=== PATIENT | male | born 1940 | race African-American/Black ===

== ENCOUNTER 2017-08-05 18:13 | Inpatient (IN) | payer MEDICARE ==
[~2017-08-05] VITALS: Ht 182.9 cm; Wt 77.1 kg
[2017-08-05] MEDS ORDERED: MORPHINE SULFATE 4 MG/ML CPJ (NOT FOR IM USE) IV STA (18:27)
[2017-08-05] MEDS ORDERED: SODIUM CHLORIDE 0.9% 1,000 ML IV ONE (18:27)
[2017-08-05] MEDS ORDERED: ONDANSETRON HCL 4MG/2ML INJ IV STA (18:27)
[2017-08-05 18:41] LABS: CLARITY URINE CLOUDY (CLEAR); COLOR URINE YELLOW (YELLOW); KETONES URINE 1+ (NEGATIVE); LEUKOCYTE ESTERASE URINE NEGATIVE (NEGATIVE); NITRITE URINE NEGATIVE (NEGATIVE); OCCULT BLOOD URINE TRACE (NEGATIVE); PROTEIN URINE 1+ (NEGATIVE); SPECIFIC GRAVITY URINE 1.023 (1.005-1.030)
[2017-08-05] MEDS ORDERED: DIATR MEGLU/DIATRIZOATE SOLN 120ML ONE (18:47)
[2017-08-05 19:33] LABS: BASOPHILS % 0.6 % (0.0-2.0); EOSINOPHILS % 1.1 % (0.0-5.0); HEMATOCRIT. 40.7 % (42.0-52.0); HEMOGLOBIN. 13.7 g/dL (14.0-18.0); LYMPHOCYTES % 14.1 % (20.0-50.0); MEAN CORPUSCULAR HEMOGLOBIN 30.8 pg (28.0-32.0); MEAN CORPUSCULAR VOLUME 91.1 fL (80.0-94.0); MEAN PLATELET VOLUME 8.5 fl (7.4-10.4); MONOCYTES % 6.1 % (2.0-8.0); NEUTROPHILS % 78.1 % (40.0-76.0); PLATELET 182 x1000/uL (130-400); RED BLOOD CELL COUNT 4.46 mill/uL (4.7-6.1); RED CELL DISTRIBUTION WIDTH 13.5 % (11.6-14.6)
[2017-08-05 19:38] LABS: CHLORIDE 108 mEq/L (98-107)
[2017-08-05 19:42] LABS: INR 1.1; PARTIAL THROMBOPLASTIN TIME 22.4 sec (23.4-31.0); PROTHROMBIN TIME 11.6 sec (9.4-11.6)
[2017-08-05] MEDS ORDERED: MORPHINE SULFATE 4 MG/ML CPJ (NOT FOR IM USE) IV ONE (19:45)
[2017-08-05 23:18] VITALS: BP 96/40
[2017-08-05 23:30] VITALS: BP 96/40
[2017-08-05] MEDS ORDERED: HYDROCODONE/ACETAMINOPHEN 5/325MG TABLET PO PRN (23:30)
[2017-08-05] MEDS ORDERED: IPRATROPIUM/ALBUTEROL 0.5-3(2.5)MG/3ML NEB INH PRN (23:30)
[2017-08-05] MEDS ORDERED: MAGNESIUM/ALUMINUM HYDROXIDE/SIMETHICONE 30ML UDC PO PRN (23:30)
[2017-08-05] MEDS ORDERED: CLONIDINE 0.1MG TABLET PO PRN (23:30)
[2017-08-05] MEDS ORDERED: DIPHENHYDRAMINE 50MG/ML VIAL IV PRN (23:30)
[2017-08-05] MEDS ORDERED: MORPHINE SULFATE 2 MG/ML CPJ (NOT FOR IM USE) IV PRN (23:30)
[2017-08-05] MEDS ORDERED: GUAIFENESIN 200MG/10ML SUGAR FREE UDC PO PRN (23:30)
[2017-08-05] MEDS ORDERED: ONDANSETRON HCL 4MG/2ML INJ IV PRN (23:30)
[2017-08-05] MEDS ORDERED: ACETAMINOPHEN 325MG TABLET PO PRN (23:30)
[2017-08-05] MEDS ORDERED: NA PHOS,M-B/NA PHOS,DI-BA ENEMA 118ML PR PRN (23:30)
[2017-08-06 00:33] LABS: CHLORIDE 110 mEq/L (98-107)
[2017-08-06 04:00] VITALS: BP 117/59
[2017-08-06] MEDS ORDERED: DEXT 5%/0.45% NACL 1000ML 1,000 ML IV SCH (04:00)
[2017-08-06] MEDS ORDERED: PROP80CA2 PO (04:36)
[2017-08-06] MEDS ORDERED: ASPI-1159 PO (04:36)
[2017-08-06] MEDS ORDERED: MULT-1146 PO ×2 (04:36→22:25)
[2017-08-06] MEDS ORDERED: FLUT100D IH (04:36)
[2017-08-06] MEDS ORDERED: OMEP40CA34 PO ×2 (04:36→22:25)
[2017-08-06] MEDS ORDERED: LISI-604 PO (04:36)
[2017-08-06] MEDS ORDERED: HYDR12.54 PO (04:36)
[2017-08-06] MEDS ORDERED: SUCR1TAB30 PO (04:36)
[2017-08-06] MEDS ORDERED: ROSU40TA PO (04:36)
[2017-08-06] MEDS ORDERED: DICY20TA11 PO (04:36)
[2017-08-06 06:27] LABS: CHLORIDE 108 mEq/L (98-107)
[2017-08-06 06:54] LABS: HDL CHOLESTEROL 42 mg/dL (40-59); LDL CHOLESTEROL 75 mg/dL (5-100)
[2017-08-06 06:59] LABS: BASOPHILS % 0.4 % (0.0-2.0); EOSINOPHILS % 0.3 % (0.0-5.0); HEMATOCRIT. 35.7 % (42.0-52.0); HEMOGLOBIN. 12.4 g/dL (14.0-18.0); LYMPHOCYTES % 19.7 % (20.0-50.0); MEAN CORPUSCULAR HEMOGLOBIN 31.7 pg (28.0-32.0); MEAN CORPUSCULAR VOLUME 91.2 fL (80.0-94.0); MEAN PLATELET VOLUME 9.1 fl (7.4-10.4); MONOCYTES % 7.7 % (2.0-8.0); NEUTROPHILS % 71.9 % (40.0-76.0); PLATELET 157 x1000/uL (130-400); RED BLOOD CELL COUNT 3.91 mill/uL (4.7-6.1); RED CELL DISTRIBUTION WIDTH 13.4 % (11.6-14.6)
[2017-08-06 08:00] VITALS: BP 116/74
[2017-08-06] MEDS: ENOXAPARIN 40MG/0.4ML SYR SUBCUT SCH (09:24)
[2017-08-06] MEDS ORDERED: BUPIVACAINE HCL 0.5% (5MG/ML) 50ML ONE (11:19)
[2017-08-06] MEDS ORDERED: SKIN ADHESIVE 0.7 GM EA TOP ONE (11:24)
[2017-08-06 12:00] VITALS: BP 132/71
[2017-08-06] MEDS ORDERED: DEXAMETHASONE 4MG/ML 1ML VIAL ONE (12:25)
[2017-08-06] MEDS ORDERED: PROPOFOL 200MG/20ML VIAL IV ONE ×2 (12:25→13:54)
[2017-08-06] MEDS ORDERED: ROCURONIUM BROMIDE 10MG/ML VIAL 5ML IV ONE (12:25)
[2017-08-06] MEDS ORDERED: EPHEDRINE SULFATE 50MG/ML VIAL ONE (12:54)
[2017-08-06] MEDS ORDERED: ONDANSETRON HCL 4MG/2ML INJ IV PRN (13:00)
[2017-08-06] MEDS: SODIUM CHLORIDE 0.9% INJ 3ML FLUSH IVF SCH (13:00)
[2017-08-06] MEDS ORDERED: HYDROMORPHONE HCL/PF 2MG/ML CPJ IV PRN (13:00)
[2017-08-06] MEDS ORDERED: MEPERIDINE HCL/PF 25MG/ML CPJ IV PRN (13:00)
[2017-08-06] MEDS ORDERED: LABETALOL 5MG/ML SYR 20 MG/4 ML SYRINGE IV PRN (13:00)
[2017-08-06] MEDS ORDERED: NEOSTIGMINE METHYLSULFATE 1MG/ML 10 ML VIAL ONE (13:13)
[2017-08-06] MEDS ORDERED: ESMOLOL HCL 10MG/ML 10ML VIAL IV ONE (13:22)
[2017-08-06] MEDS ORDERED: MORPHINE SULFATE 2 MG/ML CPJ (NOT FOR IM USE) IV PRN (13:30)
[2017-08-06] MEDS ORDERED: ACETAMINOPHEN 650MG SUPP PR PRN (13:30)
[2017-08-06] MEDS ORDERED: MORPHINE SULFATE 4 MG/ML CPJ (NOT FOR IM USE) IV PRN (13:30)
[2017-08-06] MEDS ORDERED: HYDROCODONE/ACETAMINOPHEN 5/325MG TABLET PO PRN (13:30)
[2017-08-06] MEDS ORDERED: HYDROMORPHONE HCL/PF 2MG/ML (OR) ONE (14:34)
[2017-08-06] MEDS ORDERED: ONDANSETRON HCL 4MG/2ML INJ ONE (14:34)
[2017-08-06] MEDS: DEXT 5%/0.45% NACL KCL 20MEQ/L 1,000 ML IV SCH (15:37)
[2017-08-06 16:00] VITALS: BP 146/67
[2017-08-06 20:00] VITALS: BP 127/66
[2017-08-06] MEDS ORDERED: MEDICATION NOT ON FORMULARY EA (Hydrochlorothiazide 12.5 MG) PO SCH (20:30)
[2017-08-07] VITALS: BP 139/57
[2017-08-07] MEDS ORDERED: DICYCLOMINE HCL 20MG TABLET PO PRN (02:00)
[2017-08-07] MEDS: DEXT 5%/0.45% NACL KCL 20MEQ/L 1,000 ML IV SCH ×3 (03:39→14:45)
[2017-08-07 04:00] VITALS: BP 130/63
[2017-08-07] MEDS: OMEPRAZOLE 20MG CAPSULE EXTENDED RELEASE PO SCH (06:49)
[2017-08-07 07:18] LABS: BASOPHILS % 0.1 % (0.0-2.0); HEMATOCRIT. 33.5 % (42.0-52.0); HEMOGLOBIN. 11.5 g/dL (14.0-18.0); LYMPHOCYTES % 11.9 % (20.0-50.0); MEAN CORPUSCULAR HEMOGLOBIN 31.2 pg (28.0-32.0); MEAN CORPUSCULAR VOLUME 90.7 fL (80.0-94.0); MEAN PLATELET VOLUME 8.8 fl (7.4-10.4); PLATELET 163 x1000/uL (130-400); RED CELL DISTRIBUTION WIDTH 13.3 % (11.6-14.6)
[2017-08-07 08:00] VITALS: BP 124/72
[2017-08-07 08:06] LABS: CHLORIDE 106 mEq/L (98-107)
[2017-08-07] MEDS ORDERED: MEDICATION NOT ON FORMULARY EA (Omeprazole 1 CAP) PO SCH (09:00)
[2017-08-07] MEDS ORDERED: PROPRANOLOL HCL 80 MG PO SCH (09:00)
[2017-08-07] MEDS ORDERED: MEDICATION NOT ON FORMULARY EA (Rosuvastatin Calcium (Crestor) 40 MG) PO SCH (09:00)
[2017-08-07] MEDS ORDERED: MEDICATION NOT ON FORMULARY EA (Multivitamin (Multi Vitamin Daily) 1 TAB) PO SCH (09:00)
[2017-08-07] MEDS: HYDROCHLOROTHIAZIDE 12.5MG CAPSULE PO SCH (09:00)
[2017-08-07] MEDS: ENOXAPARIN 40MG/0.4ML SYR SUBCUT SCH (09:50)
[2017-08-07] MEDS: ACETAMINOPHEN 325MG TABLET PO PRN ×3 (09:51→22:10)
[2017-08-07] MEDS: PROPRANOLOL HCL 20MG TABLET PO SCH ×2 (09:53→22:11)
[2017-08-07] MEDS: MULTIVITAMINS,THER W-MINERALS TABLET PO SCH (09:53)
[2017-08-07] MEDS: ASPIRIN 81MG EC TABLET PO SCH (09:53)
[2017-08-07] MEDS: LISINOPRIL 20MG TABLET PO SCH (09:54)
[2017-08-07] MEDS: SUCRALFATE 1G TABLET PO SCH ×2 (09:54→19:19)
[2017-08-07] MEDS: ONDANSETRON HCL 4MG/2ML INJ IV PRN (10:17)
[2017-08-07] MEDS: LEVOFLOXACIN 500MG PREMIX 100 ML IV SCH (14:45)
[2017-08-07] MEDS: CHLORPROMAZINE HCL 25 MG TABLET PO PRN (15:46)
[2017-08-07 16:00] VITALS: BP 103/58
[2017-08-07 20:00] VITALS: BP 120/66
[2017-08-07] MEDS: ATORVASTATIN CALCIUM 40MG TABLET PO SCH (22:11)
[2017-08-07] MEDS: SODIUM CHLORIDE 0.9% INJ 3ML FLUSH IVF SCH (22:12)
[2017-08-08] VITALS: BP 110/60
[2017-08-08] MEDS: HYDROCODONE/ACETAMINOPHEN 5/325MG TABLET PO PRN (03:01)
[2017-08-08] MEDS: CHLORPROMAZINE HCL 25 MG TABLET PO PRN ×2 (03:10→20:25)
[2017-08-08 04:00] VITALS: BP 96/56
[2017-08-08] MEDS: DEXT 5%/0.45% NACL KCL 20MEQ/L 1,000 ML IV SCH ×2 (05:55→17:17)
[2017-08-08] MEDS: OMEPRAZOLE 20MG CAPSULE EXTENDED RELEASE PO SCH (05:56)
[2017-08-08] MEDS: SODIUM CHLORIDE 0.9% INJ 3ML FLUSH IVF SCH ×3 (05:56→20:29)
[2017-08-08 06:34] LABS: BASOPHILS % 0.3 % (0.0-2.0); EOSINOPHILS % 1.3 % (0.0-5.0); HEMOGLOBIN. 9.5 g/dL (14.0-18.0); LYMPHOCYTES % 17.1 % (20.0-50.0); MEAN CORPUSCULAR HEMOGLOBIN 31.1 pg (28.0-32.0); MEAN CORPUSCULAR VOLUME 90.6 fL (80.0-94.0); MEAN PLATELET VOLUME 8.7 fl (7.4-10.4); MONOCYTES % 12.8 % (2.0-8.0); NEUTROPHILS % 68.5 % (40.0-76.0); PLATELET 125 x1000/uL (130-400); RED BLOOD CELL COUNT 3.04 mill/uL (4.7-6.1); RED CELL DISTRIBUTION WIDTH 13.2 % (11.6-14.6)
[2017-08-08 07:04] LABS: HEMATOCRIT. 28.6 % (42.0-52.0)
[2017-08-08 07:14] LABS: CHLORIDE 107 mEq/L (98-107)
[2017-08-08 08:00] VITALS: BP 108/55
[2017-08-08] MEDS: PROPRANOLOL HCL 20MG TABLET PO SCH ×2 (09:00→20:27)
[2017-08-08] MEDS: ENOXAPARIN 40MG/0.4ML SYR SUBCUT SCH (09:00)
[2017-08-08] MEDS: ASPIRIN 81MG EC TABLET PO SCH (09:00)
[2017-08-08] MEDS: HYDROCHLOROTHIAZIDE 12.5MG CAPSULE PO SCH (10:01)
[2017-08-08] MEDS: SUCRALFATE 1G TABLET PO SCH ×2 (10:01→17:18)
[2017-08-08] MEDS: LISINOPRIL 20MG TABLET PO SCH (10:02)
[2017-08-08] MEDS: MULTIVITAMINS,THER W-MINERALS TABLET PO SCH (10:02)
[2017-08-08 12:00] VITALS: BP 118/66
[2017-08-08] MEDS: LEVOFLOXACIN 500MG PREMIX 100 ML IV SCH (15:00)
[2017-08-08 16:00] VITALS: BP 102/65
[2017-08-08 20:00] VITALS: BP 126/68
[2017-08-08] MEDS: ATORVASTATIN CALCIUM 40MG TABLET PO SCH (20:26)
[2017-08-08] MEDS: ACETAMINOPHEN 325MG TABLET PO PRN (20:39)
[2017-08-09] VITALS: BP 107/58
[2017-08-09] MEDS: HYDROCODONE/ACETAMINOPHEN 5/325MG TABLET PO PRN (02:15)
[2017-08-09 04:00] VITALS: BP 110/62
[2017-08-09] MEDS: OMEPRAZOLE 20MG CAPSULE EXTENDED RELEASE PO SCH (06:44)
[2017-08-09] MEDS: DEXT 5%/0.45% NACL KCL 20MEQ/L 1,000 ML IV SCH ×2 (06:44→14:07)
[2017-08-09 08:00] VITALS: BP 126/67
[2017-08-09] MEDS: MULTIVITAMINS,THER W-MINERALS TABLET PO SCH (09:34)
[2017-08-09] MEDS: PROPRANOLOL HCL 20MG TABLET PO SCH ×2 (09:34→22:47)
[2017-08-09] MEDS: SUCRALFATE 1G TABLET PO SCH ×2 (09:34→17:12)
[2017-08-09] MEDS: HYDROCHLOROTHIAZIDE 12.5MG CAPSULE PO SCH (09:34)
[2017-08-09] MEDS: ASPIRIN 81MG EC TABLET PO SCH (09:34)
[2017-08-09] MEDS: LISINOPRIL 20MG TABLET PO SCH (09:35)
[2017-08-09] MEDS: ENOXAPARIN 40MG/0.4ML SYR SUBCUT SCH (09:35)
[2017-08-09 10:01] LABS: BASOPHILS % 0.4 % (0.0-2.0); EOSINOPHILS % 1.7 % (0.0-5.0); HEMATOCRIT. 28.9 % (42.0-52.0); HEMOGLOBIN. 9.8 g/dL (14.0-18.0); LYMPHOCYTES % 9.5 % (20.0-50.0); MEAN CORPUSCULAR VOLUME 91.8 fL (80.0-94.0); MEAN PLATELET VOLUME 8.5 fl (7.4-10.4); MONOCYTES % 10.9 % (2.0-8.0); NEUTROPHILS % 77.5 % (40.0-76.0); PLATELET 143 x1000/uL (130-400); RED BLOOD CELL COUNT 3.15 mill/uL (4.7-6.1); RED CELL DISTRIBUTION WIDTH 13.5 % (11.6-14.6)
[2017-08-09 10:42] LABS: CHLORIDE 107 mEq/L (98-107)
[2017-08-09 12:00] VITALS: BP 126/67
[2017-08-09] MEDS: SODIUM CHLORIDE 0.9% INJ 3ML FLUSH IVF SCH ×3 (14:07→22:48)
[2017-08-09] MEDS: CHLORPROMAZINE HCL 25 MG TABLET PO PRN ×2 (14:07→19:08)
[2017-08-09 15:55] LABS: CLARITY URINE CLEAR (CLEAR); COLOR URINE YELLOW (YELLOW); KETONES URINE NEGATIVE (NEGATIVE); LEUKOCYTE ESTERASE URINE NEGATIVE (NEGATIVE); NITRITE URINE NEGATIVE (NEGATIVE); OCCULT BLOOD URINE 2+ (NEGATIVE); PH URINE 6.5 (4.5-8.0); PROTEIN URINE NEGATIVE (NEGATIVE)
[2017-08-09 16:00] VITALS: BP 133/73
[2017-08-09] MEDS: ACETAMINOPHEN 325MG TABLET PO PRN (17:12)
[2017-08-09] MEDS ORDERED: DIATR MEGLU/DIATRIZOATE SOLN 30ML PO NR ×2 (18:30)
[2017-08-09 20:00] VITALS: BP 125/75
[2017-08-09] MEDS ORDERED: VANCOMYCIN 1500MG in DEXTROSE 5% WATER 250ML IV SCH (20:00)
[2017-08-09] MEDS: ATORVASTATIN CALCIUM 40MG TABLET PO SCH (22:48)
[2017-08-09] MEDS: METRONIDAZOLE 500 MG PREMIX 100 ML IV SCH (22:48)
[2017-08-09 23:18] LABS: HEMATOCRIT 26.9 % (42.0-52.0); HEMOGLOBIN 9.3 g/dL (14.0-18.0)
[2017-08-10] VITALS: BP 118/59
[2017-08-10] MEDS: ACETAMINOPHEN 325MG TABLET PO PRN (00:38)
[2017-08-10] MEDS: PIPERACILLIN/TAZ 3.375G PREMIX 50 ML IV SCH ×3 (03:48→17:35)
[2017-08-10 03:52] VITALS: BP 115/58
[2017-08-10] MEDS: METRONIDAZOLE 500 MG PREMIX 100 ML IV SCH ×3 (04:57→22:05)
[2017-08-10 07:07] LABS: INR 1.1; PROTHROMBIN TIME 11.4 sec (9.4-11.6)
[2017-08-10 07:16] LABS: BASOPHILS % 0.4 % (0.0-2.0); EOSINOPHILS % 3.8 % (0.0-5.0); HEMATOCRIT. 26.5 % (42.0-52.0); HEMOGLOBIN. 9.1 g/dL (14.0-18.0); LYMPHOCYTES % 18.4 % (20.0-50.0); MEAN CORPUSCULAR HEMOGLOBIN 31.2 pg (28.0-32.0); MEAN CORPUSCULAR VOLUME 90.9 fL (80.0-94.0); MEAN PLATELET VOLUME 8.4 fl (7.4-10.4); MONOCYTES % 12.4 % (2.0-8.0); PLATELET 165 x1000/uL (130-400); RED BLOOD CELL COUNT 2.92 mill/uL (4.7-6.1); RED CELL DISTRIBUTION WIDTH 13.3 % (11.6-14.6)
[2017-08-10 07:39] LABS: CHLORIDE 105 mEq/L (98-107)
[2017-08-10 07:51] VITALS: BP 124/61
[2017-08-10] MEDS: MULTIVITAMINS,THER W-MINERALS TABLET PO SCH (08:53)
[2017-08-10] MEDS: FAMOTIDINE 20MG TABLET PO SCH ×2 (08:53→17:35)
[2017-08-10] MEDS: SUCRALFATE 1G TABLET PO SCH ×2 (08:54→17:35)
[2017-08-10] MEDS: PROPRANOLOL HCL 20MG TABLET PO SCH ×2 (08:54→22:06)
[2017-08-10 12:06] VITALS: BP 172/61
[2017-08-10] MEDS ORDERED: VANCOMYCIN 1 G PREMIX 200 ML IV SCH (14:00)
[2017-08-10] MEDS: SODIUM CHLORIDE 0.9% INJ 3ML FLUSH IVF SCH ×2 (14:42→22:06)
[2017-08-10 16:32] VITALS: BP 139/68
[2017-08-10 20:27] VITALS: BP 126/67
[2017-08-10] MEDS: CHLORPROMAZINE HCL 25 MG TABLET PO PRN (22:06)
[2017-08-10] MEDS: ATORVASTATIN CALCIUM 40MG TABLET PO SCH (22:06)
[2017-08-11 00:22] VITALS: BP 147/81
[2017-08-11] MEDS: PIPERACILLIN/TAZ 3.375G PREMIX 50 ML IV SCH ×2 (01:48→08:49)
[2017-08-11] MEDS ORDERED: VANCOMYCIN 1 G PREMIX 200 ML IV SCH (02:00)
[2017-08-11 04:00] VITALS: BP 143/62
[2017-08-11] MEDS: METRONIDAZOLE 500 MG PREMIX 100 ML IV SCH ×2 (04:19→11:47)
[2017-08-11] MEDS: SODIUM CHLORIDE 0.9% INJ 3ML FLUSH IVF SCH ×3 (05:09→21:42)
[2017-08-11 06:12] LABS: BASOPHILS % 0.4 % (0.0-2.0); EOSINOPHILS % 4.1 % (0.0-5.0); HEMATOCRIT. 26.9 % (42.0-52.0); HEMOGLOBIN. 9.3 g/dL (14.0-18.0); LYMPHOCYTES % 19.8 % (20.0-50.0); MEAN CORPUSCULAR HEMOGLOBIN 31.4 pg (28.0-32.0); MEAN CORPUSCULAR VOLUME 91.1 fL (80.0-94.0); MEAN PLATELET VOLUME 8.1 fl (7.4-10.4); MONOCYTES % 14.2 % (2.0-8.0); NEUTROPHILS % 61.5 % (40.0-76.0); PLATELET 178 x1000/uL (130-400); RED BLOOD CELL COUNT 2.95 mill/uL (4.7-6.1); RED CELL DISTRIBUTION WIDTH 13.2 % (11.6-14.6)
[2017-08-11 06:33] LABS: CHLORIDE 104 mEq/L (98-107)
[2017-08-11] MEDS: ONDANSETRON HCL 4MG/2ML INJ IV PRN (07:43)
[2017-08-11 08:00] VITALS: BP 130/72
[2017-08-11] MEDS: MULTIVITAMINS,THER W-MINERALS TABLET PO SCH (08:50)
[2017-08-11] MEDS: FAMOTIDINE 20MG TABLET PO SCH ×2 (08:50→16:35)
[2017-08-11] MEDS: PROPRANOLOL HCL 20MG TABLET PO SCH ×2 (08:50→21:00)
[2017-08-11] MEDS: SUCRALFATE 1G TABLET PO SCH ×2 (08:50→16:35)
[2017-08-11 12:00] VITALS: BP 142/70
[2017-08-11] MEDS ORDERED: VANCOMYCIN 1250MG in DEXTROSE 5% WATER 250ML IV SCH (14:00)
[2017-08-11 16:00] VITALS: BP 137/77
[2017-08-11] MEDS: CHLORPROMAZINE HCL 25 MG TABLET PO PRN (16:14)
[2017-08-11] MEDS: ACETAMINOPHEN 325MG TABLET PO PRN (16:35)
[2017-08-11 20:17] VITALS: BP 116/63
[2017-08-11] MEDS: ATORVASTATIN CALCIUM 40MG TABLET PO SCH (21:42)
[2017-08-12 00:34] VITALS: BP 126/65
[2017-08-12 04:00] VITALS: BP 120/71
[2017-08-12] MEDS: SODIUM CHLORIDE 0.9% INJ 3ML FLUSH IVF SCH (05:30)
[2017-08-12 07:51] VITALS: BP 146/68
[2017-08-12] MEDS: MULTIVITAMINS,THER W-MINERALS TABLET PO SCH (08:48)
[2017-08-12] MEDS: FAMOTIDINE 20MG TABLET PO SCH (08:48)
[2017-08-12] MEDS: SUCRALFATE 1G TABLET PO SCH (08:48)
[2017-08-12] MEDS: PROPRANOLOL HCL 20MG TABLET PO SCH (08:50)
[2017-08-12 09:30] LABS: BASOPHILS % 0.4 % (0.0-2.0); EOSINOPHILS % 3.5 % (0.0-5.0); HEMATOCRIT. 28.7 % (42.0-52.0); HEMOGLOBIN. 9.9 g/dL (14.0-18.0); LYMPHOCYTES % 14.5 % (20.0-50.0); MEAN CORPUSCULAR VOLUME 90.4 fL (80.0-94.0); MEAN PLATELET VOLUME 7.9 fl (7.4-10.4); MONOCYTES % 14.2 % (2.0-8.0); NEUTROPHILS % 67.4 % (40.0-76.0); PLATELET 252 x1000/uL (130-400); RED BLOOD CELL COUNT 3.18 mill/uL (4.7-6.1); RED CELL DISTRIBUTION WIDTH 13.2 % (11.6-14.6)
[2017-08-12 10:12] LABS: CHLORIDE 104 mEq/L (98-107)
[2017-08-12] MEDS: CHLORPROMAZINE HCL 25 MG TABLET PO PRN (10:38)
[2017-08-12 12:12] VITALS: BP 133/63
[2017-08-12] MEDS: ACETAMINOPHEN 325MG TABLET PO PRN (12:30)
== END 2017-08-12 13:10 | disposition home or self-care (01) | DRG 350 ==
LOC: ER 18:30 → 6EST 20:36 → ENRESERV 21:05 → 6EST 08-07 15:49 → 6WST 08-10 02:40
PROVIDERS: ADMIT Internal Medicine Nephrology; ATTEND Internal Medicine Nephrology
PROC: 0YU50JZ Supplement Right Inguinal Region with Synthetic Substitute, Open Approach (ICD-10-PCS; principal; 2017-08-06)
DX: K40.30 Unilateral inguinal hernia, with obstruction, without gangrene, not specified as recurrent (principal); N17.0 Acute kidney failure with tubular necrosis; K66.1 Hemoperitoneum; I11.0 Hypertensive heart disease with heart failure; D64.9 Anemia, unspecified; I50.9 Heart failure, unspecified; M41.9 Scoliosis, unspecified; K44.0 Diaphragmatic hernia with obstruction, without gangrene; E86.0 Dehydration; I25.10 Atherosclerotic heart disease of native coronary artery without angina pectoris; D72.829 Elevated white blood cell count, unspecified; E78.00 Pure hypercholesterolemia, unspecified; E78.5 Hyperlipidemia, unspecified; K21.9 Gastro-esophageal reflux disease without esophagitis; K64.9 Unspecified hemorrhoids; Z79.82 Long term (current) use of aspirin; Z79.899 Other long term (current) drug therapy; Z82.49 Family history of ischemic heart disease and other diseases of the circulatory system; Z87.11 Personal history of peptic ulcer disease; Z95.1 Presence of aortocoronary bypass graft
CPT/HCPCS: 36415; 71045; 74176; 80048; 80061; 80076; 80202; 81001; 82270; 85014; 85018; 86850; 86900; 93005; 96361; 96374; 96375; 96376; 97161; 99285; C1781; C1893; J1100; J1170; J1650; J1956; J2270; J2405; J2543; J2704; J2710; J3370; J3490; J7030; J7060; Q0161; Q9963